=== PATIENT | female | born 1980 | race Caucasian/White ===

== ENCOUNTER 2016-11-16 09:31 | Emergency (ER) | payer OTHER ==
[~2016-11-16] VITALS: Ht 157.5 cm; Wt 78.0 kg
[2016-11-16 09:34] VITALS: Ht 157.5 cm; Wt 78.0 kg
[2016-11-16] MEDS ORDERED: ACETAMINOPHEN 325 MG TAB PO ONE (10:00)
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
[2016-11-16] MEDS ORDERED: ACET325T33 PO (10:15)
== END 2016-11-16 10:45 | disposition home or self-care (01) ==
LOC: FTE 09:31
DX: G44.209 Tension-type headache, unspecified, not intractable (principal); V89.2XXA Person injured in unspecified motor-vehicle accident, traffic, initial encounter
CPT/HCPCS: 99283